=== PATIENT | female | born 2000 | race Caucasian/White ===

== ENCOUNTER 2019-01-21 21:08 | Emergency (ER) | payer MEDICAID ==
[~2019-01-21] VITALS: Ht 160 cm; Wt 58.1 kg
[2019-01-21 21:10] VITALS: BP 117/78
--- NOTE | 2019-01-21 21:10 | NUR ---
PATIENT AMBULATED TO ER BED 2.
--- NOTE | 2019-01-21 21:30 | NUR ---
URINE HCG DONE AND IS NEGATIVE.
--- NOTE | 2019-01-21 21:36 | NUR ---
ER-MD CAME BY BEDSIDE TO EVALUATE PT.
[2019-01-21] MEDS ORDERED: KETOROLAC 60 MG/2 ML VIAL IM ONE (21:40)
--- NOTE | 2019-01-21 21:47 | NUR ---
TORADOL 60 MG IM GIVEN ORDERED FOR PAIN.
--- NOTE | 2019-01-21 21:48 | NUR ---
WENT FOR X-RAY OF THE LUMBOSACRAL SPINE VIA WHEELCHAIR.
--- NOTE | 2019-01-21 22:01 | NUR ---
BACK FROM RADIOLOGY DEPARTMENT.
--- NOTE | 2019-01-21 22:35 | NUR ---
DISCHARGED BY ER-MD STABLE WITH PRESCRIPTION, VERBAL AND WRITTEN AFTERCARE INSTRUCTIONS. VERBALIZED UNDERSTANDING. LEFT AMBULATORY WITH STABLE GAIT.
[2019-01-21 22:44] VITALS: BP 109/63
== END 2019-01-21 22:35 | disposition home or self-care (01) ==
LOC: MED 21:08
DX: S33.5XXA Sprain of ligaments of lumbar spine, initial encounter (principal); M54.2 Cervicalgia; V49.60XA Unspecified car occupant injured in collision with unspecified motor vehicles in traffic accident, initial encounter; Y93.89 Activity, other specified; Y92.810 Car as the place of occurrence of the external cause; Y99.8 Other external cause status
CPT/HCPCS: 72110; 81025; 96372; 99283; J1885

== ENCOUNTER 2020-03-25 22:40 | Emergency (ER) | payer MEDICAID ==
[~2020-03-25] VITALS: Ht 160 cm; Wt 57.6 kg
[2020-03-25 22:50] VITALS: BP 112/70
--- NOTE | 2020-03-25 22:54 | NUR ---
PT TAKEN TO BED 07 WITH STEADY GAIT.
--- NOTE | 2020-03-25 22:55 | NUR ---
20 YO F BIB SELF FOR C/C OF 910 DULL LOWER ABD PAIN X3 DAYS WITH N/V AND CONSTIPATION. PT STATES SHE HAS NOT BEEN ABLE TO HOLD DOWN FOOD AND WATER FOR 3 DAYS. PT STATES SHE HAS NOT HAD A BM IN 2 DAYS. PT DENIES FEVER, COUGH, SOB, AND DYSURIA. BS NORMOACTIVE THROUGHOUT. BED LOCKED AND IN LOWEST POSITION. SIDE RAILS X1. MED HX: SKULL FRACTURE IN JUN 2019, COMA FOR 2 WEEKS IN JUN 2019 NO RX NKA
[2020-03-25] MEDS ORDERED: ONDANSETRON 4 MG ODT PO ONE (23:10)
--- NOTE | 2020-03-25 23:30 | NUR ---
DENNIS ROCHA AT BEDSIDE
[2020-03-25] MEDS ORDERED: KETOROLAC 60 MG/2 ML VIAL IM ONE (23:35)
--- NOTE | 2020-03-25 23:50 | NUR ---
PT STATES HER PAIN IS NOW 0/10 POST IM TORODOL.
[2020-03-25 23:53] VITALS: BP 112/70
--- NOTE | 2020-03-25 23:53 | NUR ---
Patient discharged with v/s stable. Written and verbal after care instructions given and explained. Patient alert, oriented and verbalized understanding of instructions. Ambulatory with steady gait. All questions addressed prior to discharge. ID band removed. Patient advised to follow up with PMD. Rx of MOTRIN, ZOFRAN given. Patient educated on indication of medication including possible reaction and side effects. Opportunity to ask questions provided and answered.
== END 2020-03-25 23:53 | disposition home or self-care (01) ==
LOC: MED 22:40
DX: R10.9 Unspecified abdominal pain (principal); R11.2 Nausea with vomiting, unspecified; F12.90 Cannabis use, unspecified, uncomplicated; Z85.841 Personal history of malignant neoplasm of brain
CPT/HCPCS: 81002; 81025; 96372; 99283; J1885; Q0162

== ENCOUNTER 2020-05-14 06:08 | Emergency (ER) | payer MEDICAID ==
[~2020-05-14] VITALS: Ht 160 cm; Wt 58.1 kg
[2020-05-14 06:13] VITALS: BP 147/80
--- NOTE | 2020-05-14 06:18 | NUR ---
PT TAKEN TO BED 12
--- NOTE | 2020-05-14 06:20 | NUR ---
20 year old female coming in for c/o mid-lower abdominal pain x 3 days radiating to left flank. states 10/10 severe aching pain accompanied with n/v/d. pt tested positive for UCG. LMP mid february, per pt. pt is 2 Para 0 ( 1 miscarriage). abdomen is soft and nontender. bowel sounds normoactive. pt denies headache/blurry vision. denies sob/cough. denies dysuria, vaginal discharge. denies hematochezia. denies any other s/sx. denies acute injury or trauma. pmhx: 1 miscarriage, left skull repair s/p TC in 07/14, facial reconstruction s/p TC in07/14 nkda
--- NOTE | 2020-05-14 06:22 | NUR ---
Dr. Everett with patient for MSE.
--- NOTE | 2020-05-14 06:23 | NUR ---
LT Brachial vein 18g IV site initiated. flushable and patent. tolerated well .
--- NOTE | 2020-05-14 06:24 | NUR ---
urine sample, blood draw sent over to lab.
[2020-05-14] MEDS ORDERED: MORPHINE SULFATE 4 MG/ML SYR IVP ONE ×2 (06:30→08:25)
[2020-05-14] MEDS ORDERED: METOCLOPRAMIDE 10 MG/2 ML INJ VIAL IVP ONE (06:30)
[2020-05-14] MEDS ORDERED: NACL 0.9% 1,000 ML IV ONE (06:30)
[2020-05-14] MEDS ORDERED: MORPHINE SULFATE 4 MG/ML SYR ONE (06:32)
[2020-05-14] MEDS ORDERED: METOCLOPRAMIDE 10 MG/2 ML INJ VIAL ONE (06:32)
--- NOTE | 2020-05-14 06:42 | NUR ---
Ultrasound at bedside.
[2020-05-14 06:47] LABS: BASOPHILS % (AUTO) 0.2 % (0.0-2.0); HEMATOCRIT 38.3 % (36-48); HEMOGLOBIN 12.7 g/dL (12.0-16.0); LYMPHOCYTES # (AUTO) 0.9 K/uL (2.5-16.5); LYMPHOCYTES % (AUTO) 7.1 % (20.5-51.1); MEAN CORPUSCULAR HEMOGLOBIN 30 pg (27-31); MEAN CORPUSCULAR HGB CONC 33 g/dL (33-37); MEAN CORPUSCULAR VOLUME 89.1 fL (80-94); MONOCYTES # (AUTO) 0.4 K/uL (0.8-1.0); MONOCYTES % (AUTO) 3.1 % (1.7-9.3); NEUTROPHILS # (AUTO) 10.8 K/uL (1.8-7.7); NEUTROPHILS % (AUTO) 89.6 % (42.2-75.2); PLATELET COUNT (AUTO) 277 K/uL (140-450); RED CELL DISTRIBUTION WIDTH 14.8 % (11.6-13.7)
[2020-05-14 06:49] LABS: BILIRUBIN,URINE NEGATIVE (NEGATIVE); BLOOD, URINE TRACE-I (NEGATIVE); COLOR,URINE YELLOW (YELLOW); LEUKOCYTE ESTERASE ,URINE NEGATIVE (NEGATIVE); NITRITE, URINE NEGATIVE (NEGATIVE); PH,URINE 6.5 (5.0-9.0); UGLUCOSE NEGATIVE (NEGATIVE)
[2020-05-14 07:07] LABS: ALBUMIN 4.2 g/dL (3.4-5.0); CREATININE 0.6 mg/dL (0.6-1.3); TOTAL BILIRUBIN 0.6 mg/dL (0.0-1.0)
--- NOTE | 2020-05-14 07:14 | NUR ---
pt endorsement given to Vivien LAM .transfer of care at this time.
[2020-05-14 08:14] LABS: APPEARANCE,URINE HAZY (CLEAR); RBC,URINE 0-5 /HPF (0-5)
[2020-05-14 08:15] LABS: WBC,URINE 0-5 /HPF (0-5)
--- NOTE | 2020-05-14 08:18 | NUR ---
Pt requesting pain medication, Dr. Howard made aware.
[2020-05-14 08:54] VITALS: BP 115/66
--- NOTE | 2020-05-14 08:54 | NUR ---
Patient discharged with v/s stable. Written and verbal after care instructions given and explained. Patient alert, oriented and verbalized understanding of instructions. Ambulatory with steady gait. All questions addressed prior to discharge. ID band removed. Patient advised to follow up with PMD. Rx of zofran 8mg tab q8h PRN nausea, and norco 5mg-325mg 1-2tabs q6h PRN pain given. Patient educated on indication of medication including possible reaction and side effects. Opportunity to ask questions provided and answered.
== END 2020-05-14 08:54 | disposition home or self-care (01) ==
LOC: MED 06:08
DX: R10.9 Unspecified abdominal pain (principal)
CPT/HCPCS: 36415; 76856; 80053; 81001; 81025; 83690; 84702; 84703; 85025; 96374; 96375; 96376; 99284; J2270; J2765; J7030

== ENCOUNTER 2020-05-29 10:17 | Emergency (ER) | payer MEDICAID ==
[~2020-05-29] VITALS: Ht 160 cm; Wt 60.8 kg
[2020-05-29 10:22] VITALS: BP 115/68
--- NOTE | 2020-05-29 10:29 | NUR ---
PATIENT AMBULATED TO ER BED 03
--- NOTE | 2020-05-29 10:35 | NUR ---
20 YO F BIB SELF FOR C/C OF VAGINAL BLEEDING DURING , UNSURE OF HOW MANY WEEKS SHE IS, DENIES CARE. PT REPORTS N/V AND SOB DUE TO FEELING ANXIOUS. VSS. PT STATES SHE HAD ABD CRAMPING LAST NIGHT AND MODERATE BLEEDING THAT STOPPED THIS MORNING. PT DENIES PAIN AT THIS TIME. P0, G2, A1, PT HAD A MISCARRAIGE IN DECEMBER OF THIS YEAR. DENIES FEVER, COUGH, BODY ACHES/CHILLS. PT POSITIONED FOR COMFORT AND PUT IN PT GOWN. BLANKET AND PILLOW PROVIDED. BED LOCKED AND IN LOWEST POSITION. SIDE RAILS X1. MED HX: MISCARRAIGE 01/11
--- NOTE | 2020-05-29 10:55 | NUR ---
LAB AT BEDSIDE, UA HANDED TO SALES ACCOUNT REPRESENTATIVE
[2020-05-29 11:14] LABS: BASOPHILS % (AUTO) 0.1 % (0.0-2.0); EOSINOPHILS # (AUTO) 0.2 K/uL (0-0.4); EOSINOPHILS % (AUTO) 1.2 % (0.0-4.0); HEMATOCRIT 41.4 % (36-48); HEMOGLOBIN 13.6 g/dL (12.0-16.0); LYMPHOCYTES % (AUTO) 5.5 % (20.5-51.1); MEAN CORPUSCULAR HEMOGLOBIN 30 pg (27-31); MEAN CORPUSCULAR HGB CONC 33 g/dL (33-37); MEAN CORPUSCULAR VOLUME 90.2 fL (80-94); MONOCYTES # (AUTO) 1.1 K/uL (0.8-1.0); MONOCYTES % (AUTO) 6.1 % (1.7-9.3); NEUTROPHILS # (AUTO) 15.9 K/uL (1.8-7.7); NEUTROPHILS % (AUTO) 87.1 % (42.2-75.2); PLATELET COUNT (AUTO) 344 K/uL (140-450); RED BLOOD CELL COUNT(AUTO) 4.59 MIL/uL (4.20-5.40); RED CELL DISTRIBUTION WIDTH 14.8 % (11.6-13.7); WHITE BLOOD COUNT (AUTO) 18.3 K/uL (4.8-10.8)
--- NOTE | 2020-05-29 11:24 | NUR ---
US AT BEDSIDE
[2020-05-29 11:39] LABS: APPEARANCE,URINE CLEAR (CLEAR); BILIRUBIN,URINE NEGATIVE (NEGATIVE); BLOOD, URINE 2+ (NEGATIVE); COLOR,URINE YELLOW (YELLOW); LEUKOCYTE ESTERASE ,URINE NEGATIVE (NEGATIVE); NITRITE, URINE NEGATIVE (NEGATIVE); PH,URINE 6.5 (5.0-9.0); UGLUCOSE NEGATIVE (NEGATIVE)
--- NOTE | 2020-05-29 12:00 | NUR ---
PT RESTING IN BED, LOCKED AND IN LOWEST POSITION. CALL LIGHT IN REACH. WATER PROVIDED TO PT PER REQUEST.
[2020-05-29 12:08] LABS: RBC,URINE 0-5 /HPF (0-5); WBC,URINE 0-5 /HPF (0-5)
[2020-05-29 13:05] VITALS: BP 113/71
== END 2020-05-29 13:05 | disposition home or self-care (01) ==
LOC: MED 10:17
DX: O21.8 Other vomiting complicating pregnancy (principal); O20.0 Threatened abortion; Z3A.01 Less than 8 weeks gestation of pregnancy; Z98.890 Other specified postprocedural states
CPT/HCPCS: 36415; 76801; 81001; 81002; 81025; 84702; 85025; 86900; 86901; 99284

== ENCOUNTER 2020-07-14 07:29 | Emergency (ER) | payer MEDICAID ==
[~2020-07-14] VITALS: Ht 160 cm; Wt 54.4 kg
[2020-07-14 07:35] VITALS: BP 122/75
--- NOTE | 2020-07-14 07:35 | NUR ---
Patient to bed 9. RN evaluating patient at bedside.
[2020-07-14] MEDS ORDERED: ONDANSETRON 4 MG/2 ML VIAL IVP ONE (08:10)
[2020-07-14] MEDS ORDERED: NACL 0.9% 1,000 ML IV SCH (08:10)
[2020-07-14] MEDS ORDERED: FAMOTIDINE 20 MG/2 ML VIAL IVP ONE (08:10)
[2020-07-14 08:29] LABS: BASOPHILS % (AUTO) 0.3 % (0.0-2.0); HEMATOCRIT 38.9 % (36-48); LYMPHOCYTES # (AUTO) 0.6 K/uL (2.5-16.5); LYMPHOCYTES % (AUTO) 3.8 % (20.5-51.1); MEAN CORPUSCULAR HEMOGLOBIN 30 pg (27-31); MEAN CORPUSCULAR HGB CONC 33 g/dL (33-37); MEAN CORPUSCULAR VOLUME 89.3 fL (80-94); MONOCYTES # (AUTO) 0.1 K/uL (0.8-1.0); NEUTROPHILS # (AUTO) 13.9 K/uL (1.8-7.7); NEUTROPHILS % (AUTO) 94.9 % (42.2-75.2); PLATELET COUNT (AUTO) 274 K/uL (140-450); RED BLOOD CELL COUNT(AUTO) 4.36 MIL/uL (4.20-5.40); RED CELL DISTRIBUTION WIDTH 14.2 % (11.6-13.7); WHITE BLOOD COUNT (AUTO) 14.6 K/uL (4.8-10.8)
[2020-07-14 08:43] LABS: ALBUMIN 4.3 g/dL (3.4-5.0); CREATININE 0.8 mg/dL (0.6-1.3); POTASSIUM 3.4 mmol/L (3.5-5.1); TOTAL BILIRUBIN 0.9 mg/dL (0.0-1.0)
[2020-07-14 08:53] LABS: CARBON DIOXIDE 22.1 mmol/L (21-32)
[2020-07-14 09:02] LABS: ANION GAP 17.3 (8-16)
[2020-07-14 09:27] VITALS: BP 120/68
--- NOTE | 2020-07-14 09:27 | NUR ---
20 Y/O FEMALE PATIENT C/O SHORTNESS OF BREATH AND CHEST PAIN SUBSTERNALLY. PAIN BECOMES MORE INTENSE WITH INSPIRATION 10/10. CHEST RISE AND FALL EVEN, NO USE OF ACCESSORY MUSCLES. CHEST BILATERALLY CLEAR. DURING ASSESSMENT, PT STARTS VOMITING. PT C/O N/V. NO STOMACH PAIN. BOWEL SOUNDS X4 NORMOACTIVE. LAST MEAL WAS LAST NIGHT. NO COUGH PRESENT. NO PREVIOUS MEDICAL HX. NKDA.
== END 2020-07-14 10:13 | disposition home or self-care (01) ==
LOC: MED 07:29
DX: R11.2 Nausea with vomiting, unspecified (principal); R19.7 Diarrhea, unspecified; R10.9 Unspecified abdominal pain; F12.90 Cannabis use, unspecified, uncomplicated; H54.62 Unqualified visual loss, left eye, normal vision right eye; Z98.890 Other specified postprocedural states
CPT/HCPCS: 36415; 80053; 81025; 83690; 85025; 96361; 96374; 96375; 99284; J2405; J3490; J7030

== ENCOUNTER 2020-07-16 01:25 | Inpatient (IN) | payer MEDICAID, SELFPAY ==
[~2020-07-16] VITALS: Ht 160 cm; Wt 58.1 kg
--- NOTE | 2020-07-16 01:41 | NUR ---
DENNIS Small in tent for medical evaluation.
[2020-07-16 01:43] VITALS: BP 112/71
[2020-07-16] MEDS ORDERED: NACL 0.9% 1,000 ML IV SCH (01:45)
[2020-07-16] MEDS ORDERED: ONDANSETRON 4 MG/2 ML VIAL IVP ONE (01:45)
--- NOTE | 2020-07-16 01:50 | NUR ---
PT PRESENTS TO THE ED WITH C/O FEVER N/V AND DIARRHEA X 2 DAYS. PT AFEBRILE AT THIS TIME. PT ON ROOM AIR, NO SOB OR SIGNS OF ACUTE DISTRESS. O2 SAT 99%. PT DENIES ANY MEDICAL HX.
[2020-07-16 02:08] LABS: BASOPHILS % (AUTO) 0.2 % (0.0-2.0); HEMATOCRIT 42.3 % (36-48); HEMOGLOBIN 14.2 g/dL (12.0-16.0); LYMPHOCYTES % (AUTO) 7.5 % (20.5-51.1); MEAN CORPUSCULAR HEMOGLOBIN 30 pg (27-31); MEAN CORPUSCULAR HGB CONC 34 g/dL (33-37); MONOCYTES # (AUTO) 1.4 K/uL (0.8-1.0); NEUTROPHILS # (AUTO) 11.2 K/uL (1.8-7.7); NEUTROPHILS % (AUTO) 82.3 % (42.2-75.2); PLATELET COUNT (AUTO) 303 K/uL (140-450); WHITE BLOOD COUNT (AUTO) 13.6 K/uL (4.8-10.8)
[2020-07-16 02:21] LABS: ALBUMIN 4.6 g/dL (3.4-5.0); ANION GAP 12.3 (8-16); CARBON DIOXIDE 31.1 mmol/L (21-32); CREATININE 0.9 mg/dL (0.6-1.3); TOTAL BILIRUBIN 1.5 mg/dL (0.0-1.0)
[2020-07-16 02:24] LABS: POTASSIUM 2.4 mmol/L (3.5-5.1)
[2020-07-16] MEDS ORDERED: LACTATED RINGERS 1,000 ML IV ONE (02:25)
[2020-07-16] MEDS ORDERED: POTASSIUM CHLORIDE 20% 40 MEQ/15 ML UDC PO ONE (02:25)
[2020-07-16] MEDS ORDERED: KCL 20 MEQ/WATER INJ PREMIX 200 ML IV ONE (02:25)
[2020-07-16] MEDS ORDERED: NACL 0.9% 1,000 ML IV ONE (02:30)
--- NOTE | 2020-07-16 05:15 | NUR ---
Patient will be admitted to care of DR VASQUEZ. Admited to [facility]. Will go to room 111A. Belongings list completed. Report to GENAOR WASHBURN .
[2020-07-16] MEDS: NACL 0.9% 1,000 ML IV SCH ×2 (05:20→19:45)
[2020-07-16 05:30] VITALS: BP 112/71
--- NOTE | 2020-07-16 05:30 | NUR ---
RECEIVED PT AAOX4 / HAN FROM ER . NID O2 SAT WNL . IV SITE INTACT AND PATENT . PER ER NURSE HE SAID THE POTASSIUM IV ONGOING IS THE SECOND BAG . AMBULATES TO BED - PT IS TO WEAK - PUT PT ON FALL PREVENTION PROTOCOL .ADMISSION VITAL SIGN - DONE . CALL LIGHT WITHIN REACH . WILL CONT. TO MONITOR . ON TLE MONITOR .
--- NOTE | 2020-07-16 06:30 | NUR ---
C/O BURNING SENSATION AND PAIN ON IV SITE WHILE K RIDER ON GOING - PT . SAID SHE CAN NOT LONGER TOLERATE IT - STOP THE K RIDER - WILL INFORM DR. VASQUEZ ABOUT IT .
--- NOTE | 2020-07-16 07:35 | NUR ---
SENT MESSAGE TO DR. VASQUEZ ABOUT THE PT'S COMPLAIN PAINFUL IV SITE AND K BEATRIS - WILL ENDORSE .
--- NOTE | 2020-07-16 07:41 | NUR ---
ENDORSED - PT - STABLE . ENDORSE TO THE NURSE SHE HAVE TO WAIT THE RESPONSE OF DR. VASQUEZ ABOUT Asa SPEAR .
[2020-07-16] MEDS ORDERED: POTASSIUM CHLORIDE 40 MEQ, LIDOCAINE MPF 1% 25 MG in NACL 0.9% 250 ML IV PRN (08:30)
[2020-07-16] MEDS ORDERED: ACETAMINOPHEN 325 MG TAB PO PRN (08:30)
[2020-07-16] MEDS ORDERED: DOCUSATE SODIUM 100 MG GELCAP PO PRN (08:30)
[2020-07-16] MEDS ORDERED: HYDROcodone/APAP 7.5/325 MG 1 TAB PO PRN (08:30)
[2020-07-16] MEDS ORDERED: guaiFENesin DM 200/20 MG-10 ML 10 ML UDC PO PRN (08:30)
[2020-07-16] MEDS: PANTOPRAZOLE 40 MG TABEC PO SCH (09:00)
[2020-07-16] MEDS: POTASSIUM CHLORIDE 10 MEQ TABER PO SCH (09:00)
[2020-07-16] MEDS: LEVOFLOXACIN 750 MG/D5W PREMIX 150 ML IV SCH (09:00)
--- NOTE | 2020-07-16 09:02 | NUR ---
PATIENT HAS BEEN SCREENED AND CATEGORIZED HIGH NUTRITION RISK. PATIENT WILL BE SEEN WITHIN 1-2 DAYS OF ADMISSION. 07/16/20-07/17/[address]
[2020-07-16 09:13] LABS: PROTHROMBIN TIME 11.6 secs (10.8-13.4)
[2020-07-16 09:48] LABS: FREE T4 (FREE THYROXINE) 1.07 ng/dL (0.76-1.46); MAGNESIUM 2.4 mg/dL (1.8-2.4); PHOSPHORUS 3.3 mg/dL (2.5-4.9); THYROID STIMULATING HORMONE 0.78 uIU/mL (0.34-3.74)
[2020-07-16] MEDS ORDERED: MAG SULF 2000 MG/WATER PREMIX 50 ML IV SCH (11:00)
[2020-07-16] MEDS: ONDANSETRON 4 MG/2 ML VIAL IM/IVP PRN ×3 (11:01→21:22)
--- NOTE | 2020-07-16 11:41 | NUR ---
WATER SERVER NOTE: Patient's Orientation Unable To Assess Information Provided By GABRIEL ROSA - MOTHER Comments SW WAS UNABLE TO MEET PATIENT AT BEDSIDE. SW COMPLETED ASSESSMENT WITH PATIENT'S MOTHER. Cabbage Salter, Realtionship and Phone Number GABRIEL ROSA MOTHER [phone] Healthcare Power of Prefinish Operator No Does Patient Have a POLST No Identifying Problems No Social Work Triggers Is A Social Work Consult Needed No Mandate Report Filed No Explanation Of Identifying Problems PATIENT IS A 20-YEAR-OLD FEMALE ADMITTED FOR SYNCOPE AND HYOPKALEMIA. PATIENT HAS NO REPORTED PMHX. Admitted From Home Pre-Admission Level Of Functioning Status Independent/Ambulatory Prior Resources/Services Used In Last 12 Months No Prior Resources Used Prior DME No Prior DME Used Dialysis Comments N/A Living Situation Lives With Family House Patient Had Caregiver No Home Support No Caregiver Issues Financial Issues No Known Financial Issue Referral To The Financial Counselor Needed No Factors/Needs No D/C Needs Identified Pt/Rep Participated In Discharge Plan Yes Patient/Family Agress With Discharge Plan Yes Discharge Plan Comments TENTATIVE DISCHARGE PLAN IS FOR PATIENT TO RETURN HOME. DC Plan Status Initiated
[2020-07-16 12:09] LABS: APPEARANCE,URINE CLEAR (CLEAR); BILIRUBIN,URINE NEGATIVE (NEGATIVE); BLOOD, URINE 1+ (NEGATIVE); COLOR,URINE DARK YELLOW (YELLOW); LEUKOCYTE ESTERASE ,URINE NEGATIVE (NEGATIVE); NITRITE, URINE NEGATIVE (NEGATIVE); PH,URINE 6.5 (5.0-9.0); UGLUCOSE NEGATIVE (NEGATIVE)
[2020-07-16 12:51] LABS: BARBITURATE, URINE NEGATIVE ng/ml (NEG <=200); BENZODIAZEPINE, URINE NEGATIVE ng/mL (NEG <=200); CANNABINOID, URINE POSITIVE ng/mL (NEG <=50); COCAINE, URINE NEGATIVE ng/mL (NEG <=300); OPIATE, URINE NEGATIVE ng/mL (NEG <=2000); PHENCYCLIDINE SCREEN,URINE NEGATIVE ng/mL (NEG <=25)
[2020-07-16 13:10] VITALS: BP 101/49
[2020-07-16 13:25] LABS: RBC,URINE 0-5 /HPF (0-5); WBC,URINE 0-5 /HPF (0-5)
--- NOTE | 2020-07-16 14:23 | NUR ---
Patient A&Ox4 c/o pain and nausea at 1100, 6 on pain scale gave norco 7.5mg also had x3 episodes of emesis clear yellow stomach acid gave zofran 4mg IVPB. Reassessed in one hour patient was asleep. current diet is clear liquid diet , has attempted to try broth unable to keep down states she will try again later. VSS . Has NS running at 60cc/hr into left ac.
--- NOTE | 2020-07-16 15:46 | NUR ---
07/16/20 RD INITIAL ASSESSMENT COMPLETED PLEASE REFER TO NUTRITION ASSESSMENT UNDER CARE ACTIVITY FOR ESTIMATED NUTRITIONAL NEEDS. 1. CONTINUE CLEAR LIQUIDS DIET TOLERATED 2. RECOMMEND ENSURE CLEAR TID 3. ADVANCE DIET WHEN MEDICALLY STABLE 4. RD TO FOLLOW-UP 2-3 DAYS, HIGH RISK ROGE COLVIN, MEG
[2020-07-16 20:00] VITALS: BP 106/62
[2020-07-16] MEDS: ZOLPIDEM 5 MG TAB PO PRN (21:22)
[2020-07-17] VITALS: BP 126/67
[2020-07-17 04:00] VITALS: BP 130/79
[2020-07-17 07:08] LABS: T4 (THYROXINE) 8.4 ug/dL (4.5-12.0)
--- NOTE | 2020-07-17 07:20 | NUR ---
RECEIVED REPORT FROM NIGHT NURSE FOR CONTINUITY OF CARE. PT IS ASLEEP. PT HAS LAX 22G INFUSING NS AT 100ML/H, SKIN INTACT. SAFETY MEASURES IN PLACE, WILL CONTINUE TO MONITOR.
[2020-07-17] MEDS: ONDANSETRON 4 MG/2 ML VIAL IM/IVP PRN ×2 (07:56→08:51)
[2020-07-17 08:00] VITALS: BP 140/77
[2020-07-17 08:21] LABS: BASOPHILS % (AUTO) 0.2 % (0.0-2.0); EOSINOPHILS # (AUTO) 0.1 K/uL (0-0.4); EOSINOPHILS % (AUTO) 0.4 % (0.0-4.0); HEMATOCRIT 39.9 % (36-48); HEMOGLOBIN 13.2 g/dL (12.0-16.0); LYMPHOCYTES # (AUTO) 1.3 K/uL (2.5-16.5); LYMPHOCYTES % (AUTO) 10.3 % (20.5-51.1); MEAN CORPUSCULAR HEMOGLOBIN 30 pg (27-31); MEAN CORPUSCULAR HGB CONC 33 g/dL (33-37); MEAN CORPUSCULAR VOLUME 89.8 fL (80-94); MONOCYTES # (AUTO) 0.8 K/uL (0.8-1.0); MONOCYTES % (AUTO) 6.7 % (1.7-9.3); NEUTROPHILS # (AUTO) 10.1 K/uL (1.8-7.7); NEUTROPHILS % (AUTO) 82.4 % (42.2-75.2); PLATELET COUNT (AUTO) 266 K/uL (140-450); RED BLOOD CELL COUNT(AUTO) 4.45 MIL/uL (4.20-5.40); RED CELL DISTRIBUTION WIDTH 13.7 % (11.6-13.7); WHITE BLOOD COUNT (AUTO) 12.2 K/uL (4.8-10.8)
--- NOTE | 2020-07-17 08:55 | NUR ---
ADMINISTERED ZOFRAN FOR NAUSEA, MEDICATION EDUCATION PROVIDED. PT TOLERATED WELL. PT IS STABLE, WILL CONTINUE TO MONITOR.
[2020-07-17] MEDS: POTASSIUM CHLORIDE 10 MEQ TABER PO SCH (09:00)
[2020-07-17] MEDS ORDERED: MAGNESIUM OXIDE 400 MG TAB PO SCH (09:00)
[2020-07-17] MEDS: PANTOPRAZOLE 40 MG TABEC PO SCH (09:00)
--- NOTE | 2020-07-17 09:16 | NUR ---
NOTIFIED DR JORDAN PT COMPLAINING OF ABD PAIN 04/03, PT VOMITING. RECEIVED TORB FROM DR JORDAN FOR 4MG MORPHINE ONCE IV. WILL INPUT ORDER AND CARRY IT OUT.
[2020-07-17 09:26] LABS: ANION GAP 15.2 (8-16); CREATININE 0.7 mg/dL (0.6-1.3); POTASSIUM 3.2 mmol/L (3.5-5.1)
[2020-07-17] MEDS ORDERED: MORPHINE SULFATE 4 MG/ML SYR ONE (09:27)
[2020-07-17] MEDS ORDERED: MORPHINE SULFATE 4 MG/ML SYR IVP SCH (09:30)
[2020-07-17] MEDS: LEVOFLOXACIN 750 MG/D5W PREMIX 150 ML IV SCH (09:31)
--- NOTE | 2020-07-17 09:42 | NUR ---
ADMINISTERED SCHEDULED MEDICATION, MORPHINE FOR ABD PAIN 10/10 PT STATES IT IS BURNING FEELING, PT TOLERATED WELL. WILL CONTINUE TO MONITOR.
--- NOTE | 2020-07-17 11:30 | NUR ---
ROUNDING ON PT, PT IS STABLE, WILL CONTINUE TO MONITOR
[2020-07-17 12:00] VITALS: BP 115/78
[2020-07-17] MEDS: NACL 0.9% 1,000 ML IV SCH ×2 (12:25→17:50)
[2020-07-17] MEDS ORDERED: METOCLOPRAMIDE 10 MG/2 ML INJ VIAL IVP PRN (12:45)
[2020-07-17] MEDS ORDERED: LORazepam 2 MG/ML VIAL IVP PRN (12:45)
--- NOTE | 2020-07-17 13:00 | NUR ---
ROUNDING ON PT, PT IS STABLE, WILL CONTINUE TO MONITOR
--- NOTE | 2020-07-17 15:30 | NUR ---
ROUNDING ON PT, PT IS STABLE, WILL CONTINUE TO MONITOR.
[2020-07-17 16:00] VITALS: BP 119/67
--- NOTE | 2020-07-17 17:00 | NUR ---
ROUNDING ON PT, PT IS STABLE, WILL CONTINUE TO MONITOR.
--- NOTE | 2020-07-17 19:27 | NUR ---
ENDORSE PT TO NIGHT NURSE FOR CONTINUITY OF CARE
[2020-07-17 20:00] VITALS: BP 121/89
--- NOTE | 2020-07-17 20:00 | NUR ---
Assumed care A/O. Denies pain at this time. Would like to know more about her diagnosis.Will provided her with this information. 20 gauge IV in the in the left antecubital is leaking. Will continue to monitor.
[2020-07-17] MEDS: ZOLPIDEM 5 MG TAB PO PRN (21:24)
[2020-07-18] VITALS: BP 103/51
[2020-07-18 04:00] VITALS: BP 124/80
--- NOTE | 2020-07-18 07:25 | NUR ---
RECEIVED REPORT FROM NIGHT NURSE FOR CONTINUITY OF CARE. PT IS STABLE. PT ASLEEP. PT HAS LFA 20F INFUSING NS AT 60 ML/H, SKIN INTACT. SAFETY MEASURES IN PLACE, WILL CONTINUE TO MONITOR
[2020-07-18 08:00] VITALS: BP 111/88
[2020-07-18 09:29] LABS: ANION GAP 14.5 (8-16); BASOPHILS % (AUTO) 0.3 % (0.0-2.0); CARBON DIOXIDE 25.5 mmol/L (21-32); CREATININE 0.7 mg/dL (0.6-1.3); EOSINOPHILS # (AUTO) 0.2 K/uL (0-0.4); HEMATOCRIT 38.9 % (36-48); LYMPHOCYTES # (AUTO) 1.7 K/uL (2.5-16.5); LYMPHOCYTES % (AUTO) 20.3 % (20.5-51.1); MEAN CORPUSCULAR HEMOGLOBIN 30 pg (27-31); MEAN CORPUSCULAR HGB CONC 34 g/dL (33-37); MEAN CORPUSCULAR VOLUME 90.1 fL (80-94); MONOCYTES # (AUTO) 0.7 K/uL (0.8-1.0); MONOCYTES % (AUTO) 7.9 % (1.7-9.3); NEUTROPHILS % (AUTO) 69.5 % (42.2-75.2); PLATELET COUNT (AUTO) 247 K/uL (140-450); RED BLOOD CELL COUNT(AUTO) 4.31 MIL/uL (4.20-5.40); RED CELL DISTRIBUTION WIDTH 14.1 % (11.6-13.7); WHITE BLOOD COUNT (AUTO) 8.6 K/uL (4.8-10.8)
[2020-07-18] MEDS: PANTOPRAZOLE 40 MG TABEC PO SCH (10:00)
--- NOTE | 2020-07-18 10:00 | NUR ---
ADMINISTERED SCHEDULED MEDICATION, MEDICATION EDUCATION PROVIDED. PT TOLERATED WELL. PT IS STABLE, WILL CONTINUE TO MONITOR.
[2020-07-18] MEDS: LEVOFLOXACIN 750 MG/D5W PREMIX 150 ML IV SCH (10:01)
[2020-07-18] MEDS: POTASSIUM CHLORIDE 10 MEQ TABER PO SCH (10:01)
--- NOTE | 2020-07-18 11:30 | NUR ---
ROUNDING ON PT, PT SITTING IN BED, PT STABLE, WILL CONTINUE TO MONITOR.
[2020-07-18 12:00] VITALS: BP 115/76
[2020-07-18] MEDS ORDERED: ONDA4TAB PO (12:47)
[2020-07-18] MEDS ORDERED: POTA10TE30 PO (12:47)
--- NOTE | 2020-07-18 12:51 | NUR ---
NOTIFIED DR JORDAN PT IS REQUESTING TO SHOWER. RECEIVED TORB FROM DR JORDAN TO ALLOW PT TO SHOWER. WILL INPUT ORDER AND CARRY IT OUT.
--- NOTE | 2020-07-18 12:59 | NUR ---
PT IS IN THE SHOWER. EXPLAINED SAFETY MEASURES OF THE SHOWER. PT VERBALIZED UNDERSTANDING. PT IS STABLE.
--- NOTE | 2020-07-18 14:05 | NUR ---
GAVE PT DISCHARGE INSTRUCTIONS, PT VERBALIZED UNDERSTANDING, REMOVED IV. PT STABLE. PT DISCHARGED HOME. PT REFUSED FLU/PNA VACCINE.
== END 2020-07-18 14:05 | disposition home or self-care (01) | DRG 720 ==
LOC: MED 01:25 → MTU 03:05
PROVIDERS: ADMIT Family Medicine; ATTEND Family Medicine
DX: A41.9 Sepsis, unspecified organism (principal); R55 Syncope and collapse; Z20.822 Contact with and (suspected) exposure to COVID-19; E86.0 Dehydration; E87.6 Hypokalemia; H54.7 Unspecified visual loss; F17.200 Nicotine dependence, unspecified, uncomplicated; K52.9 Noninfective gastroenteritis and colitis, unspecified; Z80.1 Family history of malignant neoplasm of trachea, bronchus and lung; R07.89 Other chest pain; A04.9 Bacterial intestinal infection, unspecified
CPT/HCPCS: 36415; 71045; 80048; 80053; 80305; 81001; 82150; 82948; 83036; 83605; 83690; 83735; 83880; 84100; 84436; 84439; 84443; 84479; 84484; 85025; 85610; 85730; 87040; 87086; 93005; 99285; J1956; J2270; J2405; J3475; J3480; J7030; U0003

== ENCOUNTER 2020-08-17 04:20 | Emergency (ER) | payer MEDICAID, SELFPAY ==
[~2020-08-17] VITALS: Ht 160 cm; Wt 58.5 kg
[~2020-08-17 04:20] MED LIST: ONDA4TAB PO; POTA10TE30 PO
[2020-08-17 04:26] VITALS: BP 131/90
--- NOTE | 2020-08-17 04:26 | NUR ---
TO BED AMBULATORY
[2020-08-17] MEDS ORDERED: ONDANSETRON 4 MG/2 ML VIAL IVP ONE ×3 (04:45→06:50)
[2020-08-17] MEDS ORDERED: ACETAMINOPHEN EXTRA STRENGTH 500 MG TAB PO ONE ×2 (04:45→06:45)
[2020-08-17] MEDS ORDERED: KETOROLAC 15 MG/ML VIAL IVP ONE ×2 (04:45→05:05)
[2020-08-17] MEDS ORDERED: ONDANSETRON 4 MG ODT PO ONE (04:45)
[2020-08-17] MEDS ORDERED: ALUMINUM HYD/MAG/SIMETHICONE 30 ML UDC PO ONE ×2 (04:45→06:45)
[2020-08-17] MEDS ORDERED: FAMOTIDINE 20 MG TAB PO ONE (04:45)
--- NOTE | 2020-08-17 05:00 | NUR ---
Pt c/o N/V with epigastric pain x2 days. Denies urinary symptoms. States she smoked weed around 1am today. Denies other medical hx, states no other medications, drugs, or alcohol are used. A/Ox4, steady gait. States she is unable to give urine at this time. 20g IV started in RAC and NS 0.9 running per MD order. Call light within reach.
[2020-08-17] MEDS ORDERED: FAMOTIDINE 20 MG/2 ML VIAL IVP ONE (05:05)
[2020-08-17] MEDS ORDERED: NACL 0.9% 1,000 ML IV ONE (05:05)
[2020-08-17 05:28] LABS: BASOPHILS % (AUTO) 0.2 % (0.0-2.0); EOSINOPHILS % (AUTO) 0.2 % (0.0-4.0); HEMATOCRIT 37.1 % (36-48); HEMOGLOBIN 12.1 g/dL (12.0-16.0); LYMPHOCYTES # (AUTO) 1.3 K/uL (2.5-16.5); LYMPHOCYTES % (AUTO) 6.6 % (20.5-51.1); MEAN CORPUSCULAR HEMOGLOBIN 29 pg (27-31); MEAN CORPUSCULAR HGB CONC 33 g/dL (33-37); MEAN CORPUSCULAR VOLUME 88.7 fL (80-94); MONOCYTES # (AUTO) 0.9 K/uL (0.8-1.0); MONOCYTES % (AUTO) 4.4 % (1.7-9.3); NEUTROPHILS # (AUTO) 17.3 K/uL (1.8-7.7); NEUTROPHILS % (AUTO) 88.6 % (42.2-75.2); PLATELET COUNT (AUTO) 278 K/uL (140-450); RED BLOOD CELL COUNT(AUTO) 4.18 MIL/uL (4.20-5.40); RED CELL DISTRIBUTION WIDTH 14.3 % (11.6-13.7); WHITE BLOOD COUNT (AUTO) 19.5 K/uL (4.8-10.8)
[2020-08-17 05:43] LABS: ALBUMIN 3.9 g/dL (3.4-5.0); ANION GAP 14.9 (8-16); CARBON DIOXIDE 24.4 mmol/L (21-32); CREATININE 0.5 mg/dL (0.6-1.3); POTASSIUM 3.3 mmol/L (3.5-5.1); TOTAL BILIRUBIN 0.4 mg/dL (0.0-1.0)
--- NOTE | 2020-08-17 06:09 | NUR ---
Pt resting with eyes closed, breathing even and unlabored. Awakened by RN, states she still cannot provide urine sample. aware.
--- NOTE | 2020-08-17 06:48 | NUR ---
US at bedside.
[2020-08-17] MEDS ORDERED: ONDANSETRON 4 MG/2 ML VIAL ONE (06:51)
--- NOTE | 2020-08-17 06:55 | NUR ---
Pt noted vomiting again, c/o nausea. notified and ordered another Zofran 4mg IV. Given to pt. Pt still receiving US.
--- NOTE | 2020-08-17 07:10 | NUR ---
REPORT AND CONTINUATION OF CARE RECEIVED FROM GENARO MARISCAL.
--- NOTE | 2020-08-17 07:15 | NUR ---
PATIENT IS RESTING IN BED LYING IN LEFT SIDE. PT STATES NO NAUSEA AT THIS TIME; PAIN 9/10. DR. LARA MADE AWARE. PRIMARY CARE PHYSICIAN IN PLACE. EQUAL CHEST RISE AND FALL. BED LOCKED IN LOWEST POSITION, SIDE RAILS X 1, CALL LIGHT IN REACH.
--- NOTE | 2020-08-17 07:22 | NUR ---
DR. LARA IS EVALUATING PATIENT AT BEDSIDE.
[2020-08-17] MEDS ORDERED: HALOPERIDOL IM 5 MG/ML VIAL IM ONE (07:25)
--- NOTE | 2020-08-17 07:39 | NUR ---
PATIENT RESTING IN LEFT LYING POSITION IN SEMI-FOWLERS. PT STATES POSITIVE RELIEF AFTER HALDOL 5MG IM ADMINISTRATION; STATES "I FEEL BETTER." PILLOW AND BLANKET PROVIDED PER PT REQUEST. ALL PT NEEDS MET AT THIS TIME. EQUAL CHEST RISE AND FALL. HEEL WASHER STRINGING MACHINE OPERATOR IN PLACE. BED LOCKED IN LOWEST POSITION, SIDE RAILS X 1, CALL LIGHT IN REACH.
--- NOTE | 2020-08-17 07:46 | NUR ---
PT PRESENTS SITTING UPRIGHT IN BED WITH EMESIS BAG IN HAND. PT VOMITED X 2 EPISODES; 95ML CLEAR LIQUID. NEW EMESIS BAG PROVIDED. PT NOW LAYING BACK IN POSITION OF COMFORT. BED LOCKED IN LOWEST POSITION, SIDE RAILS X 1, CALL LIGHT IN REACH.
--- NOTE | 2020-08-17 08:20 | NUR ---
PATIENT LAYING IN SEMI-FOWLERS POSITION; AWAKEN BY RN AND PT STATES 0/10 PAIN; NO NAUSEA. ALL PT NEEDS MET AT THIS TIME. BED LOCKED IN LOWEST POSITION, SIDE RAILS X1, CALL LIGHT IN REACH.
--- NOTE | 2020-08-17 08:23 | NUR ---
DR. LARA AT BEDSIDE FOR REEVALUATION.
[2020-08-17 08:38] VITALS: BP 107/62
--- NOTE | 2020-08-17 08:38 | NUR ---
Patient discharged with v/s stable. Written and verbal after care instructions given and explained. Patient alert, oriented and verbalized understanding of instructions. Ambulatory with steady gait. All questions addressed prior to discharge. ID band removed. Patient advised to follow up with PMD. Rx of MALOX, PEPCID, ZOFRAN ODT given. Patient educated on indication of medication including possible reaction and side effects. Opportunity to ask questions provided and answered.
== END 2020-08-17 08:38 | disposition home or self-care (01) ==
LOC: MED 04:20
DX: R11.2 Nausea with vomiting, unspecified (principal); R10.13 Epigastric pain; Z79.899 Other long term (current) drug therapy
CPT/HCPCS: 36415; 76705; 80053; 81002; 81025; 83690; 85025; 96361; 96372; 96374; 96375; 96376; 99284; J1630; J1885; J2405; J3490; J7030

== ENCOUNTER 2020-08-19 06:35 | Emergency (ER) | payer MEDICAID ==
[~2020-08-19] VITALS: Ht 160 cm; Wt 58.1 kg
[2020-08-19 06:43] VITALS: BP 139/60
--- NOTE | 2020-08-19 06:43 | NUR ---
TO BED AMBULATORY
--- NOTE | 2020-08-19 07:12 | NUR ---
Dr. Alfaro examining patient.
[2020-08-19] MEDS ORDERED: HALOPERIDOL IM 5 MG/ML VIAL IVP ONE (07:15)
--- NOTE | 2020-08-19 07:15 | NUR ---
20 YO F BIB SELF FOR C/C OF 10/10 MID UPPER GASTRIC PAIN X1 DAY WITH N/V X3 DAYS. PT DESCRIBES PAIN A "NAUSEOUS PAIN" THAT RADIATES TO MID UPPER CHEST. S1S2 HEARD, LUNG SOUNDS CLEAR THROUGHOUT. PT STATES SHE HAS HAD COUGH WITH SOB, DENIES COVID CONTACT. PT PLACED ON OVERLOCK SEWING MACHINE OPERATOR/BED LOCKED AND IN LOWEST POSITION. SIDE RAILS X1. MED HX: DENIES NKA
--- NOTE | 2020-08-19 07:25 | NUR ---
LABS AND NOVEL SWAB COLLECTED AND SENT TO LAB
[2020-08-19 07:34] LABS: BASOPHILS # (AUTO) 0.1 K/uL (0.00-0.22); BASOPHILS % (AUTO) 0.5 % (0.0-2.0); EOSINOPHILS % (AUTO) 0.1 % (0.0-4.0); HEMATOCRIT 40.9 % (36-48); HEMOGLOBIN 13.8 g/dL (12.0-16.0); LYMPHOCYTES # (AUTO) 1.3 K/uL (2.5-16.5); LYMPHOCYTES % (AUTO) 12.3 % (20.5-51.1); MEAN CORPUSCULAR HEMOGLOBIN 30 pg (27-31); MEAN CORPUSCULAR HGB CONC 34 g/dL (33-37); MEAN CORPUSCULAR VOLUME 88.3 fL (80-94); MONOCYTES # (AUTO) 0.7 K/uL (0.8-1.0); MONOCYTES % (AUTO) 6.9 % (1.7-9.3); NEUTROPHILS # (AUTO) 8.6 K/uL (1.8-7.7); NEUTROPHILS % (AUTO) 80.2 % (42.2-75.2); PLATELET COUNT (AUTO) 330 K/uL (140-450); RED BLOOD CELL COUNT(AUTO) 4.64 MIL/uL (4.20-5.40); RED CELL DISTRIBUTION WIDTH 13.8 % (11.6-13.7); WHITE BLOOD COUNT (AUTO) 10.7 K/uL (4.8-10.8)
[2020-08-19 07:43] LABS: BILIRUBIN,URINE 1+ (NEGATIVE); BLOOD, URINE 2+ (NEGATIVE); COLOR,URINE AMBER (YELLOW); LEUKOCYTE ESTERASE ,URINE NEGATIVE (NEGATIVE); NITRITE, URINE NEGATIVE (NEGATIVE); UGLUCOSE NEGATIVE (NEGATIVE)
--- NOTE | 2020-08-19 07:48 | NUR ---
PT REPORTS RELIEF OF NAUSEA AND ABD PAIN POST IVP HALDOL
[2020-08-19 07:49] LABS: APPEARANCE,URINE SLIGHTLY CLOUDY (CLEAR)
[2020-08-19 07:51] LABS: WBC,URINE 0-5 /HPF (0-5)
[2020-08-19 07:57] LABS: ALBUMIN 4.4 g/dL (3.4-5.0); ANION GAP 15.8 (8-16); CREATININE 0.7 mg/dL (0.6-1.3); TOTAL BILIRUBIN 1.2 mg/dL (0.0-1.0)
[2020-08-19 07:59] LABS: POTASSIUM 2.8 mmol/L (3.5-5.1)
--- NOTE | 2020-08-19 07:59 | NUR ---
Potassium 2.8-- critical value received from lab. Dr lAfaro made aware.
[2020-08-19] MEDS ORDERED: POTASSIUM CHLORIDE 10 MEQ TABER PO ONE (08:55)
--- NOTE | 2020-08-19 09:50 | NUR ---
PT VERBALIZED THAT SHE HAD A RIDE HOME PRIOR TO DC
[2020-08-19 10:00] VITALS: BP 113/73
--- NOTE | 2020-08-19 10:00 | NUR ---
Patient discharged with v/s stable. Written and verbal after care instructions given and explained. Patient alert, oriented and verbalized understanding of instructions. Ambulatory with steady gait. All questions addressed prior to discharge. ID band removed. Patient advised to follow up with PMD. Rx of POTASSIUM, ZOFRAN given. Patient educated on indication of medication including possible reaction and side effects. Opportunity to ask questions provided and answered.
== END 2020-08-19 10:00 | disposition home or self-care (01) ==
LOC: MED 06:35
DX: F12.188 Cannabis abuse with other cannabis-induced disorder (principal); R10.9 Unspecified abdominal pain; R11.2 Nausea with vomiting, unspecified; E87.6 Hypokalemia; R05 Cough; R07.9 Chest pain, unspecified; Z20.822 Contact with and (suspected) exposure to COVID-19
CPT/HCPCS: 80053; 81001; 81025; 83690; 85025; 93005; 96374; 99284; J1630; U0003

== ENCOUNTER 2020-08-22 15:23 | Emergency (ER) | payer MEDICAID ==
[~2020-08-22] VITALS: Ht 160 cm; Wt 58.1 kg
[2020-08-22 15:29] VITALS: BP 121/78
[2020-08-22] MEDS ORDERED: KETOROLAC 30 MG/ML VIAL IM ONE (15:35)
[2020-08-22 16:43] VITALS: BP 121/78
== END 2020-08-22 16:43 | disposition home or self-care (01) ==
LOC: MED 15:23
DX: R07.9 Chest pain, unspecified (principal); R06.02 Shortness of breath; F12.10 Cannabis abuse, uncomplicated; F17.210 Nicotine dependence, cigarettes, uncomplicated; Z79.899 Other long term (current) drug therapy
CPT/HCPCS: 71045; 81002; 81025; 93005; 96372; 99283; J1885

== ENCOUNTER 2020-09-18 12:30 | Emergency (ER) | payer MEDICAID ==
[~2020-09-18] VITALS: Ht 160 cm; Wt 58.1 kg
[2020-09-18 12:33] VITALS: BP 128/62
--- NOTE | 2020-09-18 12:40 | NUR ---
20 Y/O FEMALE BIB SELF C/O ABDOMINAL PAIN X 1 WEEK. PT 5-6 WEEKS GESTATION. DENIES VAGINAL BLEEDING, PRESENCE OF DISCHARGE, PELVIC PAIN/CRAMPING. DOES NOT TAKE PRENATALS, DOES NT HAVE REGULAR RIBBON LAP MACHINE TENDER ATTENTION. INTERMITTENT ABDOMINAL PAIN 7/10, DULL/CRAMPING, RADIATES TO LOWER BACK. PT STATES NAUSEA/VOMITING/DIARRHEA WITH BLOATING. PATIENT DENIES PRESENCE OF BLOOD IN STOOL, RECENT HX OF FALLS/TRAUMA. PT DENIES PAIN/DISCOMFORT WHEN URINATING OR PRESENCE OF BLOOD IN URINE. PT VERBALIZED TAKING PREVIOUSLY PRESCRIBED NAPROXEN FOR PAIN AND ZOFRAN FOR NAUSEA YESTERDAY; LITTLE RELIEF. AO4, BREATHING EVEN AND UNLABORED, SKIN WARM AND DRY. BED IN LOWEST POSITION, LOCKED, X1 SIDERAIL UP. PMHX - SKULL FRACTURE NKA
[2020-09-18] MEDS ORDERED: ONDANSETRON 4 MG/2 ML VIAL IVP ONE (13:00)
[2020-09-18] MEDS ORDERED: NACL 0.9% 1,000 ML IV ONE (13:00)
--- NOTE | 2020-09-18 13:13 | NUR ---
US AT BEDSIDE
[2020-09-18 13:18] LABS: BASOPHILS % (AUTO) 0.3 % (0.0-2.0); EOSINOPHILS % (AUTO) 0.4 % (0.0-4.0); HEMATOCRIT 37.7 % (36-48); HEMOGLOBIN 12.7 g/dL (12.0-16.0); LYMPHOCYTES # (AUTO) 1.2 K/uL (2.5-16.5); LYMPHOCYTES % (AUTO) 13.6 % (20.5-51.1); MEAN CORPUSCULAR HEMOGLOBIN 30 pg (27-31); MEAN CORPUSCULAR HGB CONC 34 g/dL (33-37); MEAN CORPUSCULAR VOLUME 89.7 fL (80-94); MONOCYTES # (AUTO) 0.5 K/uL (0.8-1.0); MONOCYTES % (AUTO) 6.2 % (1.7-9.3); NEUTROPHILS # (AUTO) 6.8 K/uL (1.8-7.7); NEUTROPHILS % (AUTO) 79.5 % (42.2-75.2); PLATELET COUNT (AUTO) 298 K/uL (140-450); RED BLOOD CELL COUNT(AUTO) 4.21 MIL/uL (4.20-5.40); WHITE BLOOD COUNT (AUTO) 8.5 K/uL (4.8-10.8)
[2020-09-18 13:33] LABS: ANION GAP 13.9 (8-16); CARBON DIOXIDE 24.5 mmol/L (21-32); CREATININE 0.5 mg/dL (0.6-1.3); POTASSIUM 3.4 mmol/L (3.5-5.1); TOTAL BILIRUBIN 0.8 mg/dL (0.0-1.0)
[2020-09-18 14:12] LABS: APPEARANCE,URINE SL CLOUDY (CLEAR); BILIRUBIN,URINE NEGATIVE (NEGATIVE); BLOOD, URINE NEGATIVE (NEGATIVE); COLOR,URINE YELLOW (YELLOW); LEUKOCYTE ESTERASE ,URINE NEGATIVE (NEGATIVE); NITRITE, URINE NEGATIVE (NEGATIVE); PH,URINE 8.5 (5.0-9.0); UGLUCOSE NEGATIVE (NEGATIVE)
[2020-09-18] MEDS ORDERED: POTASSIUM CHLORIDE 10 MEQ TABER PO ONE (14:15)
[2020-09-18] MEDS ORDERED: LACTATED RINGERS 1,000 ML IV ONE (14:15)
[2020-09-18] MEDS ORDERED: DOXY1TCP PO (14:50)
--- NOTE | 2020-09-18 15:05 | NUR ---
Patient discharged with v/s stable. Written and verbal after care instructions ABOUT HYPEREMESIS GRAVIDARUM AND FIRST TRIMESTER OF given and explained. Patient alert, oriented and verbalized understanding of instructions. Ambulatory with steady gait. All questions addressed prior to discharge. ID band removed. Patient advised to follow up with PMD. Rx of KHADRA BRONSON given. Patient educated on indication of medication including possible reaction and side effects. Opportunity to ask questions provided and answered.
[2020-09-18 15:39] VITALS: BP 128/62
== END 2020-09-18 15:05 | disposition home or self-care (01) ==
LOC: MED 12:30
DX: O21.9 Vomiting of pregnancy, unspecified (principal); O26.891 Other specified pregnancy related conditions, first trimester; R10.84 Generalized abdominal pain; E87.6 Hypokalemia; Z3A.01 Less than 8 weeks gestation of pregnancy
CPT/HCPCS: 36415; 76817; 80053; 81003; 81025; 83690; 84702; 85025; 86900; 86901; 96361; 96374; 99284; J2405; J7030

== ENCOUNTER 2020-09-23 07:06 | Emergency (ER) | payer MEDICAID ==
[~2020-09-23] VITALS: Ht 160 cm; Wt 58.1 kg
[~2020-09-23 07:06] MED LIST changes: +DOXY1TCP PO
[2020-09-23 07:13] VITALS: BP 107/57
--- NOTE | 2020-09-23 07:26 | NUR ---
20 Y/O FEMALE C/O LOWER ABDOMINAL PAIN RADIATING TO LOWER BACK ,N/V/D X 2 WEEKS. LMP 08/07/20. 6 WEEKS 6 DAYS.[id number]. COVID TESTED NEGATIVE LAST MONTH. PATIENT DENIES ANY VAGINAL DISCHARGE AT THIS TIME, OR VAGINAL BLEEDING. BOWEL SOUNDS ARE NORMOACTIVE AT THIS TIME. AAOX4. AMBULATORY WITH STEADY GAIT. DENIES ANY FEVER OR CHILLS PMH:DENIES
[2020-09-23] MEDS ORDERED: LACTATED RINGERS 1,000 ML IV ONE (07:35)
[2020-09-23] MEDS ORDERED: METOCLOPRAMIDE 10 MG/2 ML INJ VIAL IVP ONE (07:35)
[2020-09-23 08:33] LABS: CARBON DIOXIDE 24.5 mmol/L (21-32); CREATININE 0.7 mg/dL (0.6-1.3); POTASSIUM 3.5 mmol/L (3.5-5.1)
[2020-09-23 08:37] LABS: BASOPHILS % (AUTO) 0.4 % (0.0-2.0); EOSINOPHILS % (AUTO) 0.5 % (0.0-4.0); HEMATOCRIT 40.3 % (36-48); HEMOGLOBIN 13.5 g/dL (12.0-16.0); MAGNESIUM 2.1 mg/dL (1.8-2.4); MEAN CORPUSCULAR HEMOGLOBIN 30 pg (27-31); MEAN CORPUSCULAR HGB CONC 34 g/dL (33-37); MEAN CORPUSCULAR VOLUME 90.1 fL (80-94); MONOCYTES # (AUTO) 0.6 K/uL (0.8-1.0); MONOCYTES % (AUTO) 6.4 % (1.7-9.3); NEUTROPHILS # (AUTO) 8.4 K/uL (1.8-7.7); NEUTROPHILS % (AUTO) 82.7 % (42.2-75.2); PLATELET COUNT (AUTO) 323 K/uL (140-450); RED BLOOD CELL COUNT(AUTO) 4.48 MIL/uL (4.20-5.40); RED CELL DISTRIBUTION WIDTH 14.5 % (11.6-13.7); WHITE BLOOD COUNT (AUTO) 10.2 K/uL (4.8-10.8)
[2020-09-23 08:42] LABS: BILIRUBIN,URINE 1+ (NEGATIVE); BLOOD, URINE NEGATIVE (NEGATIVE); COLOR,URINE YELLOW (YELLOW); LEUKOCYTE ESTERASE ,URINE NEGATIVE (NEGATIVE); NITRITE, URINE NEGATIVE (NEGATIVE); UGLUCOSE NEGATIVE (NEGATIVE)
[2020-09-23 08:46] LABS: APPEARANCE,URINE CLEAR (CLEAR)
[2020-09-23 08:47] LABS: RBC,URINE 0-5 /HPF (0-5); WBC,URINE 0-5 /HPF (0-5)
[2020-09-23 09:08] LABS: ALBUMIN 3.9 g/dL (3.4-5.0); BILIRUBIN,DIRECT 0.2 mg/dL (0.0-0.3); TOTAL BILIRUBIN 0.9 mg/dL (0.0-1.0)
[2020-09-23] MEDS ORDERED: PYRI25TA15 PO (09:56)
[2020-09-23] MEDS ORDERED: DOXY25TA61 PO (09:56)
[2020-09-23] MEDS ORDERED: PNV91TAB10 PO (09:56)
[2020-09-23 10:07] VITALS: BP 107/57
== END 2020-09-23 10:08 | disposition home or self-care (01) ==
LOC: MED 07:06
DX: O21.1 Hyperemesis gravidarum with metabolic disturbance (principal); O34.81 Maternal care for other abnormalities of pelvic organs, first trimester; N83.291 Other ovarian cyst, right side; F12.10 Cannabis abuse, uncomplicated; Z3A.01 Less than 8 weeks gestation of pregnancy
CPT/HCPCS: 36415; 76817; 80048; 80076; 81001; 81025; 83690; 83735; 84100; 85025; 96361; 96374; 99284; J2765; J7120

== ENCOUNTER 2020-10-08 11:00 | Emergency (ER) | payer MEDICAID ==
[~2020-10-08] VITALS: Ht 160 cm; Wt 57.2 kg
[~2020-10-08 11:00] MED LIST changes: +DOXY25TA61 PO; +PNV91TAB10 PO; +PYRI25TA15 PO
[2020-10-08 11:03] VITALS: BP 114/73
[2020-10-08] MEDS ORDERED: NACL 0.9% 2,000 ML IV ONE (11:55)
[2020-10-08] MEDS ORDERED: ONDANSETRON 4 MG/2 ML VIAL IVP ONE (11:55)
[2020-10-08 12:20] LABS: BASOPHILS % (AUTO) 0.4 % (0.0-2.0); EOSINOPHILS # (AUTO) 0.1 K/uL (0-0.4); EOSINOPHILS % (AUTO) 0.8 % (0.0-4.0); HEMATOCRIT 37.5 % (36-48); HEMOGLOBIN 12.5 g/dL (12.0-16.0); LYMPHOCYTES % (AUTO) 14.2 % (20.5-51.1); MEAN CORPUSCULAR HEMOGLOBIN 30 pg (27-31); MEAN CORPUSCULAR HGB CONC 33 g/dL (33-37); MEAN CORPUSCULAR VOLUME 89.5 fL (80-94); MONOCYTES # (AUTO) 0.5 K/uL (0.8-1.0); MONOCYTES % (AUTO) 6.4 % (1.7-9.3); NEUTROPHILS # (AUTO) 5.6 K/uL (1.8-7.7); NEUTROPHILS % (AUTO) 78.2 % (42.2-75.2); PLATELET COUNT (AUTO) 292 K/uL (140-450); RED BLOOD CELL COUNT(AUTO) 4.19 MIL/uL (4.20-5.40); RED CELL DISTRIBUTION WIDTH 14.3 % (11.6-13.7); WHITE BLOOD COUNT (AUTO) 7.1 K/uL (4.8-10.8)
[2020-10-08 12:36] LABS: ALBUMIN 3.7 g/dL (3.4-5.0); ANION GAP 11.2 (8-16); CARBON DIOXIDE 25.2 mmol/L (21-32); CREATININE 0.5 mg/dL (0.6-1.3); POTASSIUM 3.4 mmol/L (3.5-5.1); TOTAL BILIRUBIN 0.6 mg/dL (0.0-1.0)
[2020-10-08 12:58] LABS: APPEARANCE,URINE CLOUDY (CLEAR); BILIRUBIN,URINE NEGATIVE (NEGATIVE); BLOOD, URINE NEGATIVE (NEGATIVE); COLOR,URINE DARK YELLOW (YELLOW); LEUKOCYTE ESTERASE ,URINE NEGATIVE (NEGATIVE); NITRITE, URINE NEGATIVE (NEGATIVE); PH,URINE >=9.0 (5.0-9.0); UGLUCOSE NEGATIVE (NEGATIVE)
[2020-10-08] MEDS ORDERED: METO-485 PO (14:14)
[2020-10-08 15:04] VITALS: BP 105/60
== END 2020-10-08 15:00 | disposition home or self-care (01) ==
LOC: MED 11:00
DX: O21.9 Vomiting of pregnancy, unspecified (principal); O26.891 Other specified pregnancy related conditions, first trimester; E86.0 Dehydration; Z3A.11 11 weeks gestation of pregnancy
CPT/HCPCS: 36415; 80053; 81003; 81025; 85025; 87086; 96361; 96374; 99283; J2405; J7030

== ENCOUNTER 2020-11-02 05:05 | Emergency (ER) | payer MEDICAID ==
[~2020-11-02] VITALS: Ht 160 cm; Wt 54.9 kg
[~2020-11-02 05:05] MED LIST changes: +METO-485 PO
[2020-11-02 05:10] VITALS: BP 121/78
--- NOTE | 2020-11-02 05:16 | NUR ---
PATIENT AMBULATED TO BED 09.
--- NOTE | 2020-11-02 05:16 | NUR ---
Mallory rojas in [facility] - 11/02/20 at 0517 by HARJINDER PT TAKEN TO BED 12
[2020-11-02] MEDS ORDERED: ONDANSETRON 4 MG ODT PO ONE (05:20)
--- NOTE | 2020-11-02 05:34 | NUR ---
ERMD AT BEDSIDE FOR MEDICAL EVALUATION.
--- NOTE | 2020-11-02 05:35 | NUR ---
SEE PATIENT ASSESSMENT FOR MORE INFORMATION.
[2020-11-02 06:05] LABS: ALBUMIN 3.6 g/dL (3.4-5.0); ANION GAP 14.7 (8-16); CREATININE 0.5 mg/dL (0.6-1.3); POTASSIUM 3.7 mmol/L (3.5-5.1); TOTAL BILIRUBIN 0.9 mg/dL (0.0-1.0)
[2020-11-02] MEDS: NACL 0.9% 1,000 ML IV ONE (06:16)
[2020-11-02] MEDS: ONDANSETRON 4 MG/2 ML VIAL IVP ONE (06:18)
[2020-11-02] MEDS: ACETAMINOPHEN EXTRA STRENGTH 500 MG TAB PO ONE (06:19)
[2020-11-02 06:33] LABS: BASOPHILS % (AUTO) 0.1 % (0.0-2.0); EOSINOPHILS # (AUTO) 0.1 K/uL (0-0.4); EOSINOPHILS % (AUTO) 0.4 % (0.0-4.0); HEMATOCRIT 36.4 % (36-48); HEMOGLOBIN 12.5 g/dL (12.0-16.0); LYMPHOCYTES # (AUTO) 1.1 K/uL (2.5-16.5); LYMPHOCYTES % (AUTO) 7.6 % (20.5-51.1); MEAN CORPUSCULAR HEMOGLOBIN 30 pg (27-31); MEAN CORPUSCULAR HGB CONC 34 g/dL (33-37); MEAN CORPUSCULAR VOLUME 87.9 fL (80-94); MONOCYTES # (AUTO) 0.5 K/uL (0.8-1.0); MONOCYTES % (AUTO) 3.7 % (1.7-9.3); NEUTROPHILS # (AUTO) 12.2 K/uL (1.8-7.7); NEUTROPHILS % (AUTO) 88.2 % (42.2-75.2); PLATELET COUNT (AUTO) 258 K/uL (140-450); RED BLOOD CELL COUNT(AUTO) 4.14 MIL/uL (4.20-5.40); RED CELL DISTRIBUTION WIDTH 13.9 % (11.6-13.7); WHITE BLOOD COUNT (AUTO) 13.9 K/uL (4.8-10.8)
[2020-11-02] MEDS ORDERED: ONDA-24 SL (06:39)
[2020-11-02 06:50] VITALS: BP 121/78
== END 2020-11-02 06:50 | disposition home or self-care (01) ==
LOC: MED 05:05
DX: O21.0 Mild hyperemesis gravidarum (principal); Z3A.17 17 weeks gestation of pregnancy; Z79.899 Other long term (current) drug therapy
CPT/HCPCS: 36415; 80053; 81002; 85025; 96361; 96374; 99283; J2405; J7030; Q0162

== ENCOUNTER 2020-12-26 20:05 | Observation (INO) | payer MEDICAID ==
[~2020-12-26] VITALS: Ht 160 cm; Wt 54.4 kg
[~2020-12-26 20:05] MED LIST changes: +ONDA-24 SL
[2020-12-26 21:31] VITALS: BP 112/65
[2020-12-26] MEDS ORDERED: PNV91TAB8 PO (21:35)
== END 2020-12-26 22:05 | disposition home or self-care (01) ==
LOC: MLD 20:05
PROVIDERS: ADMIT Obstetrics & Gynecology; ATTEND Obstetrics & Gynecology
DX: O26.852 Spotting complicating pregnancy, second trimester (principal); Z3A.20 20 weeks gestation of pregnancy
CPT/HCPCS: 59025; 76817; 81000; G0378

== ENCOUNTER 2022-04-14 16:21 | Emergency (ER) | payer MEDICAID ==
[~2022-04-14] VITALS: Ht 157.5 cm; Wt 56.7 kg
[~2022-04-14 16:21] MED LIST changes: +ONDA-188 SL; -ONDA-24 SL; +PNV91TAB8 PO; +POTA10TA70 PO; -POTA10TE30 PO
[2022-04-14 16:35] VITALS: BP 147/86
--- NOTE | 2022-04-14 16:53 | NUR ---
Patient ambulated to lobby. Swabs collected, walked to lab.
--- NOTE | 2022-04-14 17:02 | NUR ---
PATIENT AMBULATED TO BED 3.
--- NOTE | 2022-04-14 18:07 | NUR ---
Patient discharged with v/s stable. Written and verbal after care instructions given. Patient verbalized understanding. Ambulatory with steady gait. All questions addressed prior to discharge. Advised to follow up with PMD. WORK NOTE HANDED TO PATIENT.
== END 2022-04-14 18:07 | disposition home or self-care (01) ==
LOC: MED 16:21
DX: J06.9 Acute upper respiratory infection, unspecified (principal); Z20.822 Contact with and (suspected) exposure to COVID-19; Z79.899 Other long term (current) drug therapy
CPT/HCPCS: 99283

== ENCOUNTER 2022-04-18 20:07 | Emergency (ER) | payer MEDICAID ==
[~2022-04-18] VITALS: Ht 157.5 cm; Wt 57.2 kg
[2022-04-18 20:48] VITALS: BP 119/72
--- NOTE | 2022-04-18 21:04 | NUR ---
PT SENT TO [facility].
--- NOTE | 2022-04-18 23:39 | NUR ---
PT TAKEN TO BED 6
--- NOTE | 2022-04-19 00:02 | NUR ---
Dr. Leigh examining patient.
--- NOTE | 2022-04-19 00:19 | NUR ---
22YR OLD FEMALE BIB SELF C/O COUGH BODY CHILLS RUNNY NOSE X5DAYS. DENIES FEVER CP OR PAIN. PT IS SOB. SP02 98%RA . SKIN WARM AND DRY. RESP EVEN AND UNLABORED. 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 HOB ELEVATED. NKDA NO MED HX
[2022-04-19] MEDS ORDERED: BENZ150C2 PO (00:23)
[2022-04-19] MEDS ORDERED: PRON INH (00:25)
[2022-04-19 00:47] VITALS: BP 137/91
--- NOTE | 2022-04-19 00:47 | NUR ---
Chart checked and completed.
--- NOTE | 2022-04-19 00:47 | NUR ---
Patient discharged with v/s stable. Written and verbal after care instructions given and explained. Patient verbalized understanding. Ambulatory with steady gait. All questions addressed prior to discharge. Advised to follow up with PMD.
== END 2022-04-19 00:47 | disposition home or self-care (01) ==
LOC: MED 20:07
DX: B34.9 Viral infection, unspecified (principal); J06.9 Acute upper respiratory infection, unspecified
CPT/HCPCS: 99281

== ENCOUNTER 2022-04-26 19:42 | Emergency (ER) | payer MEDICAID ==
[~2022-04-26] VITALS: Ht 157.5 cm; Wt 58.5 kg
[~2022-04-26 19:42] MED LIST changes: +BENZ150C2 PO; +PRON INH
[2022-04-26 20:02] VITALS: BP 142/64
--- NOTE | 2022-04-26 20:08 | NUR ---
PT TAKEN TO BED 3
--- NOTE | 2022-04-26 20:10 | NUR ---
PT AMBULATED TO ED 3, ASSUME CARE OF PT, DR LOZA AT BEDSIDE EVALUATING PT, C/O N/V/D X TODAY, 10 EPISODES OF VOMITING AND 5 EPISODES OF DIARRHEA, DENIES ANY ABD PAIN. HX- MARIJUANA USE.
[2022-04-26] MEDS ORDERED: NACL 0.9% 1,000 ML IV ONE (20:25)
[2022-04-26] MEDS ORDERED: ONDANSETRON 4 MG/2 ML VIAL IVP ONE (20:25)
[2022-04-26 20:37] LABS: BASOPHILS # (AUTO) 0.1 K/uL (0.00-0.22); BASOPHILS % (AUTO) 0.4 % (0.0-2.0); EOSINOPHILS # (AUTO) 0.1 K/uL (0-0.4); EOSINOPHILS % (AUTO) 0.6 % (0.0-4.0); HEMATOCRIT 40.2 % (36-48); HEMOGLOBIN 13.5 g/dL (12.0-16.0); LYMPHOCYTES # (AUTO) 0.9 K/uL (2.5-16.5); LYMPHOCYTES % (AUTO) 7.4 % (20.5-51.1); MEAN CORPUSCULAR HEMOGLOBIN 29 pg (27-31); MEAN CORPUSCULAR HGB CONC 34 g/dL (33-37); MONOCYTES # (AUTO) 0.4 K/uL (0.8-1.0); MONOCYTES % (AUTO) 3.2 % (1.7-9.3); NEUTROPHILS # (AUTO) 10.5 K/uL (1.8-7.7); NEUTROPHILS % (AUTO) 88.4 % (42.2-75.2); PLATELET COUNT (AUTO) 326 K/uL (140-450); RED BLOOD CELL COUNT(AUTO) 4.62 MIL/uL (4.20-5.40); RED CELL DISTRIBUTION WIDTH 14.1 % (11.6-13.7); WHITE BLOOD COUNT (AUTO) 11.9 K/uL (4.8-10.8)
[2022-04-26 20:57] LABS: ANION GAP 12.5 (8-16); CARBON DIOXIDE 27.7 mmol/L (21-32); CREATININE 0.6 mg/dL (0.6-1.3); POTASSIUM 4.2 mmol/L (3.5-5.1)
[2022-04-26] MEDS ORDERED: ONDA-188 PO (21:17)
[2022-04-26 21:34] VITALS: BP 132/65
--- NOTE | 2022-04-26 21:35 | NUR ---
Patient discharged with v/s stable. Written and verbal after care instructions given and explained. Patient alert, oriented and verbalized understanding of instructions. Ambulatory with steady gait. All questions addressed prior to discharge. ID band removed. Patient advised to follow up with PMD. Rx SENT TO PHARMACY. Patient educated on indication of medication including possible reaction and side effects. Opportunity to ask questions provided and answered.
== END 2022-04-26 21:28 | disposition home or self-care (01) ==
LOC: MED 19:42
DX: K52.9 Noninfective gastroenteritis and colitis, unspecified (principal); F17.200 Nicotine dependence, unspecified, uncomplicated; F12.90 Cannabis use, unspecified, uncomplicated; Z79.899 Other long term (current) drug therapy
CPT/HCPCS: 36415; 80048; 81002; 81025; 85025; 96361; 96374; 99283; J2405; J7030

== ENCOUNTER 2022-07-26 16:50 | Emergency (ER) | payer MEDICAID ==
[~2022-07-26] VITALS: Ht 157.5 cm; Wt 54.9 kg
[~2022-07-26 16:50] MED LIST changes: +ONDA-188 PO
[2022-07-26 16:55] VITALS: BP 123/68
--- NOTE | 2022-07-26 17:02 | NUR ---
Patient ambulated to bed 12 with steady/even gait
[2022-07-26] MEDS ORDERED: KETOROLAC 30 MG/ML VIAL IVP ONE (17:05)
--- NOTE | 2022-07-26 17:05 | NUR ---
22 y/o F BIB self from home c/o 2 days of sore throat, fever, cough, nausea, vomiting, diarrhea, nasal congestion, dizziness with positional changes x 3 weeks. Pt states NyQuil and "joint medication" today with minor relief. States 2 episodes of vomiting today, denies bloody emesis. Denies chest pain, chills, abdominal pain, dysuria, SOB. Bed locked in lowest positoin, side rails x 1. PMH/Sx/Meds: Denies NKDA
--- NOTE | 2022-07-26 17:15 | NUR ---
Mallory rojas in [facility] - 07/26/22 at 1740 by YOLANDA COVID/influenza swabs walked to lab and handed to CPT Elizabeth. Log book filled.
--- NOTE | 2022-07-26 17:15 | NUR ---
COVID/influenza swabs walked to lab and handed to CPT Agnieszka. Log book filled.
[2022-07-26 17:24] LABS: APPEARANCE,URINE CLEAR (CLEAR); BILIRUBIN,URINE NEGATIVE (NEGATIVE); BLOOD, URINE TRACE-I (NEGATIVE); COLOR,URINE YELLOW (YELLOW); LEUKOCYTE ESTERASE ,URINE NEGATIVE (NEGATIVE); NITRITE, URINE NEGATIVE (NEGATIVE); UGLUCOSE NEGATIVE (NEGATIVE)
--- NOTE | 2022-07-26 17:25 | NUR ---
LMP: 06/06/22
[2022-07-26] MEDS: ONDANSETRON 4 MG/2 ML VIAL IVP ONE (17:33)
[2022-07-26] MEDS: NACL 0.9% 1,000 ML IV ONE (17:33)
[2022-07-26 17:36] LABS: OTHER CASTS, URINE None Seen /LPF (None Seen); RBC,URINE 0-5 /HPF (0-5); WBC,URINE 0-5 /HPF (0-5)
--- NOTE | 2022-07-26 17:39 | NUR ---
Blood work collected, walked to lab and handed to CPT Agnieszka
--- NOTE | 2022-07-26 17:40 | NUR ---
Patient with + relief to nausea. Denies nausea/vomiting.
[2022-07-26 17:52] LABS: BASOPHILS % (AUTO) 0.2 % (0.0-2.0); EOSINOPHILS # (AUTO) 0.1 K/uL (0-0.4); EOSINOPHILS % (AUTO) 0.9 % (0.0-4.0); HEMATOCRIT 38.8 % (36-48); HEMOGLOBIN 13.1 g/dL (12.0-16.0); LYMPHOCYTES # (AUTO) 0.3 K/uL (2.5-16.5); MEAN CORPUSCULAR HEMOGLOBIN 30 pg (27-31); MEAN CORPUSCULAR HGB CONC 34 g/dL (33-37); MEAN CORPUSCULAR VOLUME 88.3 fL (80-94); MONOCYTES # (AUTO) 0.4 K/uL (0.8-1.0); NEUTROPHILS # (AUTO) 9.1 K/uL (1.8-7.7); NEUTROPHILS % (AUTO) 91.9 % (42.2-75.2); PLATELET COUNT (AUTO) 229 K/uL (140-450); RED CELL DISTRIBUTION WIDTH 14.2 % (11.6-13.7); WHITE BLOOD COUNT (AUTO) 9.9 K/uL (4.8-10.8)
[2022-07-26] MEDS ORDERED: ACET-2619 PO (18:29)
[2022-07-26] MEDS ORDERED: ONDA-188 SL (18:29)
[2022-07-26] MEDS ORDERED: PHEN177S23 MM (18:29)
--- NOTE | 2022-07-26 18:29 | NUR ---
Per CAIT Farris for food. [place], jello, water given to patient.
--- NOTE | 2022-07-26 18:37 | NUR ---
Patient discharged with v/s stable. Written and verbal after care instructions given and explained for Viral Illness, First Trimester of . Patient alert, oriented and verbalized understanding of instructions. Ambulatory with steady gait. All questions addressed prior to discharge. ID band removed. Patient advised to follow up with PMD. Rx of Zofran ODT, Tylenol, Phenol throat spray given. Patient educated on indication of medication including possible reaction and side effects. Opportunity to ask questions provided and answered. Copies of Covid/influenza swabs, UA, blood work results handed to patient.
== END 2022-07-26 18:37 | disposition home or self-care (01) ==
LOC: MED 16:50
DX: O99.511 Diseases of the respiratory system complicating pregnancy, first trimester (principal); Z20.822 Contact with and (suspected) exposure to COVID-19; O98.511 Other viral diseases complicating pregnancy, first trimester; Z3A.01 Less than 8 weeks gestation of pregnancy
CPT/HCPCS: 36415; 81001; 81025; 84702; 85025; 87426; 87804; 96361; 96374; 99283; J2405

== ENCOUNTER 2022-09-22 08:11 | Emergency (ER) | payer MEDICAID ==
[~2022-09-22] VITALS: Ht 160 cm; Wt 55.3 kg
[~2022-09-22 08:11] MED LIST changes: +ACET-2619 PO; +PHEN177S23 MM
[2022-09-22 08:14] VITALS: BP 119/76
--- NOTE | 2022-09-22 08:25 | NUR ---
DR ATKINS AT BEDSIDE.
--- NOTE | 2022-09-22 08:33 | NUR ---
URINE COLLECTED AND WALKED TO THE LAB.
[2022-09-22 08:38] LABS: APPEARANCE,URINE CLEAR (CLEAR); BILIRUBIN,URINE NEGATIVE (NEGATIVE); BLOOD, URINE 3+ (NEGATIVE); COLOR,URINE YELLOW (YELLOW); LEUKOCYTE ESTERASE ,URINE NEGATIVE (NEGATIVE); NITRITE, URINE NEGATIVE (NEGATIVE); UGLUCOSE NEGATIVE (NEGATIVE)
--- NOTE | 2022-09-22 08:38 | NUR ---
22 yo/f presents to ED w c/o LLQ abdominal pain 7/10 sharp intermitent x3 hours, +x 1 episode of diarrhea, and vaginal spotting pt reports she finished menstruation x2 days ago and had an x5 weeks ago. pmh: denies allergies: denies
[2022-09-22 08:51] LABS: WBC,URINE 0-5 /HPF (0-5)
[2022-09-22] MEDS ORDERED: KETOROLAC 15 MG/ML VIAL IM ONE (09:05)
--- NOTE | 2022-09-22 09:18 | NUR ---
ULTRASOUND AT BEDSIDE.
[2022-09-22] MEDS ORDERED: IBUP-2213 PO (10:25)
[2022-09-22 10:37] VITALS: BP 112/56
--- NOTE | 2022-09-22 10:38 | NUR ---
Patient discharged with v/s stable. Written and verbal after care instructions given and explained. Patient alert, oriented and verbalized understanding of instructions. Ambulatory with steady gait. All questions addressed prior to discharge. ID band removed. Patient advised to follow up with PMD. Rx of IBUPROFEN given. Opportunity to ask questions provided and answered.
--- NOTE | 2022-09-22 10:48 | NUR ---
The patient's care was reviewed and supervised by ED Agency Nurse 8, RN, RN.
== END 2022-09-22 10:37 | disposition home or self-care (01) ==
LOC: MED 08:11
DX: N80.102 Endometriosis of left ovary, unspecified depth (principal); Z79.899 Other long term (current) drug therapy
CPT/HCPCS: 76856; 81001; 81025; 87086; 93976; 96372; 99285; J1885; Q0092

== ENCOUNTER 2024-03-04 20:50 | Emergency (ER) | payer MEDICAID ==
[~2024-03-04] VITALS: Ht 160 cm; Wt 53.1 kg
[~2024-03-04 20:50] MED LIST changes: -BENZ150C2 PO; +BENZ150C7 PO; +IBUP-2213 PO
[2024-03-04 21:06] VITALS: BP 112/76; PULSE 72; RESP 16; TEMP 97.3; O2SAT 100
[2024-03-04 21:59] VITALS: BP 112/76; PULSE 72; RESP 16; TEMP 97.3; O2SAT 98
[2024-03-04 22:23] LABS: BASOPHILS % (AUTO) 0.4 % (0.0-2.0); EOSINOPHILS % (AUTO) 0.1 % (0.0-4.0); HEMATOCRIT 39.1 % (36-48); LYMPHOCYTES % (AUTO) 8.8 % (20.5-51.1); MEAN CORPUSCULAR HEMOGLOBIN 29 pg (27-31); MEAN CORPUSCULAR HGB CONC 33 g/dL (33-37); MEAN CORPUSCULAR VOLUME 87.9 fL (80-94); MONOCYTES # (AUTO) 0.5 K/uL (0.8-1.0); MONOCYTES % (AUTO) 4.7 % (1.7-9.3); NEUTROPHILS # (AUTO) 9.7 K/uL (1.8-7.7); PLATELET COUNT (AUTO) 285 K/uL (140-450); RED BLOOD CELL COUNT(AUTO) 4.45 MIL/uL (4.20-5.40); RED CELL DISTRIBUTION WIDTH 15.4 % (11.6-13.7); WHITE BLOOD COUNT (AUTO) 11.3 K/uL (4.8-10.8)
[2024-03-04 23:12] LABS: APPEARANCE,URINE CLEAR (CLEAR); BILIRUBIN,URINE 1+ (NEGATIVE); BLOOD, URINE 3+ (NEGATIVE); COLOR,URINE YELLOW (YELLOW); LEUKOCYTE ESTERASE ,URINE NEGATIVE (NEGATIVE); NITRITE, URINE NEGATIVE (NEGATIVE); PROTEIN,URINE 1+ (NEGATIVE); UGLUCOSE NEGATIVE (NEGATIVE); UROBILINOGEN,URINE 0.2 EU/dL (0.2 - 1)
[2024-03-04 23:13] LABS: ICTOTEST POSITIVE (NEGATIVE)
[2024-03-04 23:16] LABS: BACTERIA,URINE 10-30 (MOD) /HPF (None Seen); MUCUS,URINE 1+ /LPF (None Seen); RBC,URINE TOO NUMEROUS TO COUN /HPF (0-5); SQUAMOUS EPITHELIAL CELL,UR 0-3 (FEW) /LPF (0-3 (FEW)); WBC,URINE 0-5 /HPF (0-5)
[2024-03-05] MEDS ORDERED: ONDANSETRON 4 MG/2 ML VIAL ONE (00:05)
[2024-03-05] MEDS: NACL 0.9% 1,000 ML IV ONE (00:11)
[2024-03-05] MEDS: ONDANSETRON 4 MG/2 ML VIAL IVP ONE (00:12)
[2024-03-05] MEDS ORDERED: ONDA-188 SL (01:16)
[2024-03-05] MEDS ORDERED: DOXY1TCP PO (21:16)
[2024-03-05] MEDS ORDERED: ACET-2619 PO (21:16)
[2024-03-05] MEDS ORDERED: CEPH-588 PO (21:16)
== END 2024-03-05 01:20 | disposition home or self-care (01) ==
LOC: MED 20:50
DX: O20.9 Hemorrhage in early pregnancy, unspecified (principal); Z79.899 Other long term (current) drug therapy; Z3A.01 Less than 8 weeks gestation of pregnancy
CPT/HCPCS: 36415; 76817; 81001; 81025; 84702; 85025; 86900; 86901; 87086; 96361; 96374; 99285; J2405; J7030; Q0092

== ENCOUNTER 2024-03-05 18:30 | Emergency (ER) | payer MEDICAID ==
[~2024-03-05] VITALS: Ht 160 cm; Wt 53.1 kg
[2024-03-05 18:49] VITALS: BP 114/73; PULSE 72; RESP 18; TEMP 98.2; O2SAT 100
[2024-03-05] MEDS: NACL 0.9% 1,000 ML IV ONE (19:43)
[2024-03-05 19:50] LABS: BASOPHILS % (AUTO) 0.3 % (0.0-2.0); HEMATOCRIT 36.7 % (36-48); HEMOGLOBIN 12.3 g/dL (12.0-16.0); LYMPHOCYTES % (AUTO) 10.7 % (20.5-51.1); MEAN CORPUSCULAR HEMOGLOBIN 30 pg (27-31); MEAN CORPUSCULAR HGB CONC 34 g/dL (33-37); MEAN CORPUSCULAR VOLUME 88.4 fL (80-94); MONOCYTES # (AUTO) 0.5 K/uL (0.8-1.0); MONOCYTES % (AUTO) 5.4 % (1.7-9.3); NEUTROPHILS # (AUTO) 7.7 K/uL (1.8-7.7); NEUTROPHILS % (AUTO) 83.6 % (42.2-75.2); PLATELET COUNT (AUTO) 260 K/uL (140-450); RED BLOOD CELL COUNT(AUTO) 4.15 MIL/uL (4.20-5.40); RED CELL DISTRIBUTION WIDTH 15.1 % (11.6-13.7); WHITE BLOOD COUNT (AUTO) 9.2 K/uL (4.8-10.8)
[2024-03-05] MEDS: ONDANSETRON 4 MG/2 ML VIAL IVP ONE (19:54)
[2024-03-05 20:02] LABS: ANION GAP 14.2 (8-16); CALCIUM 8.3 mg/dL (8.5-10.1); CREATININE 0.5 mg/dL (0.6-1.3); POTASSIUM 3.2 mmol/L (3.5-5.1)
[2024-03-05 20:04] LABS: ALBUMIN 3.6 g/dL (3.4-5.0); BILIRUBIN,DIRECT 0.3 mg/dL (0.0-0.3); TOTAL BILIRUBIN 1.7 mg/dL (0.0-1.0); TOTAL PROTEIN, SERUM 6.7 g/dL (6.4-8.2)
[2024-03-05] MEDS ORDERED: DOXY1TCP PO (21:16)
[2024-03-05] MEDS ORDERED: ACET-2619 PO (21:16)
[2024-03-05] MEDS ORDERED: CEPH-588 PO (21:16)
[2024-03-05 21:50] VITALS: BP 126/78; PULSE 72; RESP 16; O2SAT 97
== END 2024-03-05 21:50 | disposition home or self-care (01) ==
LOC: MED 18:30
DX: O23.41 Unspecified infection of urinary tract in pregnancy, first trimester (principal); N39.0 Urinary tract infection, site not specified; O21.9 Vomiting of pregnancy, unspecified; O34.81 Maternal care for other abnormalities of pelvic organs, first trimester; N83.202 Unspecified ovarian cyst, left side; E87.6 Hypokalemia; Z3A.01 Less than 8 weeks gestation of pregnancy; Z79.899 Other long term (current) drug therapy
CPT/HCPCS: 36415; 76817; 80048; 80076; 83690; 84702; 85025; 93976; 96361; 96374; 99285; J2405; J7030